=== PATIENT | female | born 1975 | race African-American/Black ===

== ENCOUNTER 2022-07-29 11:51 | Emergency (ER) | payer BC, OTHER ==
[2022-07-29 12:07] VITALS: BP 129/72; PULSE 83; RESP 18; TEMP 97.9; BMI 78.2
[2022-07-29 13:37] LABS: EOS % 1.1 % (0-4.5); HEMATOCRIT 38.9 % (32.4-45.2); HEMOGLOBIN 12.6 GM/dL (10.7-15.3); LYMPH % 37.6 % (8-40); MCH 29.2 pg (25.7-33.7); MCHC 32.3 g/dl (32.0-36.0); MEAN CELL VOLUME 90.4 fl (80-96); MEAN PLT VOLUME 8.1 fl (7.5-11.1); MONO % 9.4 % (3.8-10.2); NEUT % 50.9 % (42.8-82.8); PLATELET COUNT 327 10^3/uL (134-434); RDW 14.6 % (11.6-15.6); WHITE BLOOD COUNT 5.7 K/mm3 (4.0-10.0)
[2022-07-29 13:43] LABS: INR 1.1 (0.83-1.09); PROTHROMBIN TIME (PATIENT) 12.7 SEC (9.7-13.0)
[2022-07-29 13:46] LABS: ACTIVATED PTT 33.8 SECONDS (25.2-36.5)
[2022-07-29 13:56] LABS: CHLORIDE 110 mmol/L (98-107); SODIUM 143 mmol/L (136-145)
[2022-07-29 13:58] LABS: CALCIUM 8.6 mg/dL (8.5-10.1)
[2022-07-29 13:59] LABS: ALBUMIN 3.7 g/dl (3.4-5.0); ANION GAP 5 MMOL/L (8-16); BLOOD UREA NITROGEN 10.2 mg/dL (7-18); CO2 28 mmol/L (21-32); GLUCOSE,RANDOM 110 mg/dL (74-106)
[2022-07-29 14:02] LABS: CREATININE 0.8 mg/dL (0.55-1.3); SGOT/AST 13 U/L (15-37); SGPT/ALT 19 U/L (13-61)
[2022-07-29 14:04] LABS: BILIRUBIN,TOTAL 0.6 mg/dL (0.2-1)
[2022-07-29 14:05] LABS: ALK PHOS 102 U/L (45-117); TOT PROT 7.2 g/dl (6.4-8.2)
[2022-07-29 14:07] LABS: N-TERMINAL BNP 11.6 pg/ml (5-125)
== END 2022-07-29 14:48 | disposition home or self-care (01) ==
LOC: JER 11:51
DX: M79.602 Pain in left arm (principal)
CPT/HCPCS: 36415; 71046-TC-FY; 80053; 83735; 83880; 84484; 85025; 85610; 85730; 93005; 93010; 99285-25

== ENCOUNTER 2024-05-28 21:11 | Emergency (ER) | payer BC, OTHER ==
[2024-05-28 21:18] VITALS: BMI 35.8
[2024-05-28 23:29] LABS: BASO % 0.8 % (0-2.0); EOS % 1.2 % (0-4.5); HEMATOCRIT 37.1 % (32.4-45.2); HEMOGLOBIN 12.3 GM/dL (10.7-15.3); LYMPH % 42.2 % (8-40); MCH 29.1 pg (25.7-33.7); MEAN CELL VOLUME 88.2 fl (80-96); MEAN PLT VOLUME 7.5 fl (7.5-11.1); MONO % 9.1 % (3.8-10.2); NEUT % 46.7 % (42.8-82.8); PLATELET COUNT 346 10^3/uL (134-434); RBC 4.21 M/mm3 (3.60-5.2); RDW 15.3 % (11.6-15.6); WHITE BLOOD COUNT 6.6 K/mm3 (4.0-10.0)
[2024-05-28 23:39] LABS: POTASSIUM 3.9 mmol/L (3.5-5.1)
[2024-05-28 23:42] LABS: ALBUMIN 3.6 g/dl (3.4-5.0); CALCIUM 8.5 mg/dL (8.5-10.1)
[2024-05-28 23:43] LABS: BLOOD UREA NITROGEN 11.3 mg/dL (7-18)
[2024-05-28 23:46] LABS: CREATININE 0.8 mg/dL (0.55-1.3)
[2024-05-28 23:47] LABS: BILIRUBIN,TOTAL 0.3 mg/dL (0.2-1); TOT PROT 7.4 g/dl (6.4-8.2)
[2024-05-29 02:32] VITALS: BP 132/80; PULSE 78; RESP 18; TEMP 98.6
== END 2024-05-29 02:32 | disposition home or self-care (01) ==
LOC: JER 21:11
DX: R07.89 Other chest pain (principal)
CPT/HCPCS: 36415; 71046-TC-FY; 80053; 84484; 85025; 93005; 93010; 99285-25

== ENCOUNTER 2024-07-22 11:03 | Emergency (ER) | payer BC, OTHER ==
[2024-07-22 11:12] VITALS: BP 119/75; PULSE 73; RESP 20; TEMP 98.7; BMI 35.5
[2024-07-22] MEDS: ACETAMINOPHEN 500 MG TABLET (FP) PO ONE (14:15)
== END 2024-07-22 14:45 | disposition home or self-care (01) ==
LOC: JERFT 11:03 → JER 11:03 → JERFT 14:45
DX: S83.92XA Sprain of unspecified site of left knee, initial encounter (principal); X50.9XXA Other and unspecified overexertion or strenuous movements or postures, initial encounter
CPT/HCPCS: 73562-TC-LT-FY; 93971-TC; 99284-25

== ENCOUNTER 2024-12-07 12:30 | Emergency (ER) | payer BC, OTHER ==
[2024-12-07 12:37] VITALS: BP 151/75; PULSE 99; RESP 18; TEMP 100; BMI 35.5
[2024-12-07] MEDS ORDERED: ONDANSETRON *ODT* 4 MG TABLET ONE (13:21)
[2024-12-07] MEDS ORDERED: ACETAMINOPHEN 500 MG TABLET (FP) ONE (13:21)
[2024-12-07] MEDS ORDERED: FAMOTIDINE 20 MG TABLET ONE (13:21)
[2024-12-07] MEDS: FAMOTIDINE 20 MG TABLET PO ONE (13:24)
[2024-12-07] MEDS: ACETAMINOPHEN 500 MG TABLET (FP) PO ONE (13:24)
[2024-12-07] MEDS: ONDANSETRON *ODT* 4 MG TABLET SL ONE (13:24)
[2024-12-07 14:01] LABS: THROAT:GRP A STREP NOT DETECTED (NOTDETECTED)
== END 2024-12-07 15:10 | disposition home or self-care (01) ==
LOC: JERFT 12:30
DX: J10.1 Influenza due to other identified influenza virus with other respiratory manifestations (principal); R50.9 Fever, unspecified; R05.9 Cough, unspecified; R09.81 Nasal congestion; R63.0 Anorexia; R53.1 Weakness; R51.9 Headache, unspecified; M79.10 Myalgia, unspecified site; R11.0 Nausea; Z20.822 Contact with and (suspected) exposure to COVID-19
CPT/HCPCS: 0241U-QW; 87651; 99283-25; Q0162

== ENCOUNTER 2025-02-03 10:12 | Observation (INO) | payer BC, OTHER ==
[2025-02-03 10:23] VITALS: BMI 36.3
[2025-02-03] MEDS ORDERED: KETOROLAC TROMETHAMINE 30 MG/1 ML VIAL ONE ×2 (11:51→11:52)
[2025-02-03] MEDS ORDERED: diazePAM 5 MG TABLET ONE (11:51)
[2025-02-03] MEDS ORDERED: LIDOCAINE 4% PATCH TP ONE (11:51)
[2025-02-03] MEDS ORDERED: ACETAMINOPHEN 500 MG TABLET (FP) ONE (11:52)
[2025-02-03] MEDS: LIDOCAINE 4% PATCH TP ONE (12:02)
[2025-02-03] MEDS: KETOROLAC TROMETHAMINE 30 MG/1 ML VIAL IM ONE (12:02)
[2025-02-03] MEDS: ACETAMINOPHEN 500 MG TABLET (FP) PO ONE (12:03)
[2025-02-03] MEDS: diazePAM 5 MG TABLET PO ONE (12:03)
[2025-02-03] MEDS ORDERED: oxyCODONE HCL 5 MG TABLET ONE (13:18)
[2025-02-03] MEDS: oxyCODONE HCL 5 MG TABLET PO ONE (13:20)
[2025-02-03 15:53] LABS: ABSOLUTE IMMATURE GRANULOCYTES 0.01 x10^3/uL (0.0-0.031); BASOPHILS # 0.01 x10^3/uL (0.01-0.08); EOSINOPHIL % 0.3 % (0.7-5.8); EOSINOPHILS # 0.02 x10^3/uL (0.04-0.36); HEMATOCRIT 41.5 % (34.1-44.9); HEMOGLOBIN 13.1 g/dL (11.2-15.7); MCHC 31.6 g/dl (32.2-35.5); MEAN CELL VOLUME 92.8 fl (79.4-94.8); MEAN PLT VOLUME 9.7 fl (9.4-12.3); MONOCYTE # 0.46 x10^3/uL (0.24-0.86); MONOCYTE % 7.6 % (4.7-12.5); PLATELET COUNT 362 x10^3/uL (182-369); RDW 14.1 % (12.2-17.1)
[2025-02-03 16:03] LABS: INR 1.16 (0.83-1.09); PROTHROMBIN TIME (PATIENT) 12.6 SEC (9.7-13.0)
[2025-02-03] MEDS: morphine CARPU-JECT 4 MG/1 ML DISP.SYRIN IVPUSH ONE ×2 (16:13→19:22)
[2025-02-03 16:17] LABS: POTASSIUM 4.3 mmol/L (3.5-5.1)
[2025-02-03 16:19] LABS: ALBUMIN 3.6 g/dl (3.4-5.0); CALCIUM 8.7 mg/dL (8.5-10.1)
[2025-02-03 16:23] LABS: CREATININE 0.7 mg/dL (0.55-1.3)
[2025-02-03 16:24] LABS: BILIRUBIN,TOTAL 0.8 mg/dL (0.2-1); TOT PROT 7.4 g/dl (6.4-8.2)
[2025-02-03] MEDS ORDERED: morphine SULFATE 4 MG/ML VIAL ONE (19:16)
[2025-02-03] MEDS ORDERED: oxyCODONE HCL 5 MG TABLET PO PRN (20:57)
[2025-02-03] MEDS: GABAPENTIN 300 MG CAPSULE PO SCH (22:10)
[2025-02-03] MEDS: HEPARIN NA (PORCINE) 5,000 UNITS/ML 1ML VIAL SQ SCH (22:10)
[2025-02-03] MEDS: ATORVASTATIN CA 80 MG TABLET (FP) PO SCH (22:10)
[2025-02-03] MEDS: LIDOCAINE PATCH REMOVAL MC SCH (22:10)
[2025-02-04] MEDS: ACETAMINOPHEN 1000 MG/100 ML BAG IVPB ONE (04:09)
[2025-02-04 08:42] LABS: HEMATOCRIT 40.4 % (34.1-44.9); HEMOGLOBIN 12.9 g/dL (11.2-15.7); MCHC 31.9 g/dl (32.2-35.5); MEAN CELL VOLUME 91.4 fl (79.4-94.8); MEAN PLT VOLUME 9.9 fl (9.4-12.3); PLATELET COUNT 328 x10^3/uL (182-369)
[2025-02-04 09:42] LABS: POTASSIUM 3.8 mmol/L (3.5-5.1)
[2025-02-04] MEDS: DULoxetine HCL 20 MG CAPSULE.DR PO SCH (09:45)
[2025-02-04] MEDS: amLODIPine BESYLATE 5 MG TABLET (FP) PO SCH (09:45)
[2025-02-04] MEDS ORDERED: oxyCODONE HCL 5 MG TABLET PO PRN (10:04)
[2025-02-04 10:26] LABS: CALCIUM 8.6 mg/dL (8.5-10.1)
[2025-02-04 10:30] LABS: CREATININE 0.7 mg/dL (0.55-1.3)
[2025-02-04] MEDS ORDERED: methylPREDNISolone 8 MG TABLET PO ONE (11:00)
[2025-02-04] MEDS: LIDOCAINE 5% TOPICAL PATCH TP SCH (11:30)
[2025-02-04] MEDS: ACETAMINOPHEN 500 MG TABLET (FP) PO SCH (11:33)
[2025-02-04] MEDS: KETOROLAC TROMETHAMINE 30 MG/1 ML VIAL IVPUSH SCH (11:34)
[2025-02-04] MEDS ORDERED: methylPREDNISolone 4 MG TABLET PO SCH (14:00)
[2025-02-04] MEDS: GABAPENTIN 400 MG CAPSULE PO SCH (14:21)
[2025-02-04] MEDS: CycloBENZAprine HCL 10 MG TABLET (FP) PO SCH (14:21)
[2025-02-04] MEDS: methylPREDNISolone 4 MG TABLET PO ONE ×2 (18:18→21:48)
[2025-02-04] MEDS: methylPREDNISolone 4 MG TABLET PO SCH (18:41)
[2025-02-04] MEDS: LIDOCAINE PATCH REMOVAL MC SCH (21:46)
[2025-02-05] MEDS: methylPREDNISolone 4 MG TABLET PO SCH (09:23)
[2025-02-05] MEDS: DULoxetine HCL 30 MG CAPSULE.DR PO SCH (09:25)
[2025-02-05 13:45] VITALS: BP 144/87; PULSE 81; RESP 17; TEMP 98.4
[2025-02-05] MEDS ORDERED: methylPREDNISolone 8 MG TABLET PO ONE (22:00)
[2025-02-05] MEDS ORDERED: methylPREDNISolone 4 MG TABLET PO ONE (22:00)
[2025-02-06] MEDS ORDERED: methylPREDNISolone 4 MG TABLET PO SCH (08:00)
[2025-02-06] MEDS ORDERED: methylPREDNISolone 4 MG TABLET PO ONE (22:00)
[2025-02-07] MEDS ORDERED: methylPREDNISolone 4 MG TABLET PO SCH (08:00)
[2025-02-08] MEDS ORDERED: methylPREDNISolone 4 MG TABLET PO SCH (08:00)
[2025-02-09] MEDS ORDERED: methylPREDNISolone 4 MG TABLET PO ONE (08:00)
== END 2025-02-05 15:43 | disposition home or self-care (01) ==
LOC: JER 10:12 → JERFT 10:12 → JERBED 19:16 → J8W 21:45
PROVIDERS: ADMIT Hospitalist; ATTEND Nurse Practitioner Family
PROC: 3E033NZ Introduction of Analgesics, Hypnotics, Sedatives into Peripheral Vein, Percutaneous Approach (ICD-10-PCS; principal; 2025-02-03)
PROC: 3E0233Z Introduction of Anti-inflammatory into Muscle, Percutaneous Approach (ICD-10-PCS; 2025-02-03)
PROC: 3E0333Z Introduction of Anti-inflammatory into Peripheral Vein, Percutaneous Approach (ICD-10-PCS; 2025-02-03)
DX: M54.9 Dorsalgia, unspecified (principal); R07.89 Other chest pain; M79.7 Fibromyalgia; E78.5 Hyperlipidemia, unspecified; I10 Essential (primary) hypertension; G56.00 Carpal tunnel syndrome, unspecified upper limb; E66.9 Obesity, unspecified; M19.90 Unspecified osteoarthritis, unspecified site; I25.2 Old myocardial infarction; I73.9 Peripheral vascular disease, unspecified; Z98.1 Arthrodesis status
CPT/HCPCS: 36415; 72125-TC; 72128-TC; 72156-TC; 72157-TC; 80048; 80053; 82150; 83690; 84484; 84703; 85025; 85027; 85610; 86850; 86900; 86901; 93005; 93010; 97116-GP; 97161-GP; 99285-25; G0378; J0131; J1644